=== PATIENT | female | born 1955 | race Caucasian/White ===

== ENCOUNTER 2025-03-24 08:20 | Emergency (ER) | payer MEDICARE, SELFPAY ==
--- NOTE | ~2025-03-24 | XR_ITS ---
EXAMINATION: XR elbow RT min 3V DATE: 03/24/2025 09:29 INDICATION: Right elbow injury post fall TECHNIQUE: Anteroposterior, two oblique and lateral views of the right elbow were obtained. COMPARISON: None. FINDINGS: Alignment is normal. No fracture. 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 No elbow joint effusion. Peripheral IV at the antecubital fossa. Soft t issues are otherwise unremarkable. IMPRESSION: 1. 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 No joint effusion or acute osseous abnormality. Reviewed, dictated and finalized at location A. IMPRESSION: 1. 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 No joint effusion or acute osseou s abnormality.
--- NOTE | ~2025-03-24 | CT_ITS ---
History: Trauma PROCEDURE: CT cervical spine without intravenous contrast. COMPARISON: None TECHNIQUE: Multiple contiguous axial images of the cervical spine were performed without the administration of i ntravenous contrast. DLP: 259 mGy-cm FINDINGS: Moderate kyphosis is demonstrated. Degenerative disease is also noted, with osteophyte formation and disc space narrowing. Significant facet arthropathy is also noted. No acute fractures are present within the cervical spine. The bilateral lung apices are unremarkable. The airway is patent. Acute displaced fractures are identified within the medial, lateral and caudal-most mendoza of the left maxillary sinus. A acute comminuted fracture of the anterior wall of the left maxillary sinus also noted, with posteri or and caudal displacement of the fracture fragments. Acute minimally displaced fracture of the roof of the left maxillary sinus is also noted, without evidence of entrapment of the left inferior rectus muscle, which runs medial to the fracture deformit y. Opacification of the left maxillary and ethmoid sinuses with mixed attenuation tissue, likely a combi nation of hemorrhage and fluid. The right maxillary sinus is clear. Impression: Acute displaced fractures of the medial, lateral and caudal-most mendoza of the maxillary sinus. Acute comminuted fractures of the anterior wall of the maxillary sinus with posterior and caudal disp lacement of the fracture fragments. Acute minimally displaced fracture of the roof of the left maxillary sinus without entrapment. Significant degenerative disease within the cervical spine, without acute fracture identified. Reviewed, dictated and finalized at location A. Impression: Acute displaced fractures of the medial, lateral and caudal-most mendoza of the m axillary sinus. Acute comminuted fractures of the anterior wall of the maxillary sinus with pos terior and caudal displacement of the fracture fragments. Acute minimally displaced fracture of the roof of the left maxillary sinus with out entrapment. Significant degenerative disease within the cervical spine, without acute fract ure identified.
--- NOTE | ~2025-03-24 | CT_ITS ---
History: Trauma PROCEDURE: CT head without contrast. COMPARISON: None TECHNIQUE: Axial imaging of the head performed from the skull base to the vertex without IV contrast. Sagittal a nd coronal reformations obtained. DLP: 605 mGy-cm FINDINGS: The ventricles are enlarged. The dilatation of the ventricles is proportional to the degree of sulcal prominence, not uncommon in the senescent brain. Decreased attenuation is identified within the periventricular white matter, likely secondary to micr ovascular ischemic disease, in a patient of this age. There is no mass, mass effect or midline shift. There is no abnormal extra-axial fluid collection or intracranial hemorrhage. Paranasal sinuses and multiple facial fractures will be further discussed on the examination of the f acial bones. The mastoid air cells are well aerated. No acute displaced fractures within the overlying cranium. Impression: No acute intracranial hemorrhage or suspicious mass effect. Paranasal sinuses and multiple facial fractures will be further discussed on the examination of the f acial bones. Reviewed, dictated and finalized at location A. Impression: No acute intracranial hemorrhage or suspicious mass effect. Paranasal sinuses and multiple facial fractures will be further discussed on th e examination of the facial bones.
--- NOTE | ~2025-03-24 | XR_ITS ---
EXAMINATION: XR wrist LT min 3V DATE: 03/24/2025 09:29 INDICATION: Left wrist injury post fall TECHNIQUE: Posteroanterior, ulnar deviation, oblique, and lateral views of the left wrist were obtain ed. COMPARISON: none FINDINGS: Alignment is normal. No fracture. Mild polyarticular osteoarthritis at the left wrist, midcarpal and first carpal metacarpal joints. Soft tissues are unremarkable. IMPRESSION: 1. 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 No acute osseous abnormality. Reviewed, dictated and finalized at location A. IMPRESSION: 1. 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 No acute osseous abnormali ty.
[2025-03-24 08:18] VITALS: BP 159/58; PULSE 66; RESP 18; TEMP 36.4; O2SAT 99
[2025-03-24 08:25] VITALS: BP 159/58; PULSE 71; RESP 16; O2SAT 96
--- NOTE | 2025-03-24 08:57 | ED_ITS ---
HPI - General Adult General Chief complaint: Fall Stated complaint: fall Time Seen by Provider: 03/24/25 08:25 History of Present Illness HPI narrative: 70-year-old female presents to the emergency department for evaluation for evaluation for a fall. Patient reports she had a fall down the stairs was unsure why she fell. Patient does have left-sided facial swelling, left wrist pain right elbow pain. Patient has history of AFib but is only on aspirin and denies being on any blood thinners. Related Data Allergies Allergy/AdvReac Type Severity Reaction Status Date / Time hydromorphone (From Dilaudid) AdvReac hurts my Verified 03/24/25 08:29 heart quetiapine (From Seroquel) AdvReac syncope Verified 03/24/25 08:29 Review of Systems 2 Review of Systems: All systems reviewed & are unremarkable except as noted in HPI and below Exam 2 Narrative: APPEARANCE: Uncomfortable appearing HEAD: normocephalic, contusion to left face. EYES: Reported double vision and increased eye pain when looking to the left lateral and and when looking up NOSE: Normal no drainage EARS:TMS clear with good light reflex. THROAT: Pharynx clear, no exudate. NECK: Supple. No adenopathy, no masses. RESPIRATORY: Airway patent, respirations nonlabored. Clear to auscultation bilaterally, no rales, rhonchi, wheezing. CARDIOVASCULAR: Regular rate and rhythm without murmurs rubs or gallops. ABDOMINAL: Soft, nontender, nondistended, normal bowel sounds MUSCULOSKELETAL: Moves all extremities. Strength/ROM intact, No edema, No calf tenderness. NEURO: Alert. Cranial nerves II through XII intact. Good gait. Good coordination SKIN: Facial contusion with ecchymosis Course Vital Signs Vital signs: Vital Signs Temperature 97.6 F 03/24/25 08:18 Pulse Rate 66 03/24/25 08:18 Respiratory Rate 18 03/24/25 08:18 Blood Pressure 159/58 H 03/24/25 08:18 Pulse Oximetry 99 03/24/25 08:18 Oxygen Delivery Room Air 03/24/25 08:18 Temperature 97.6 F 03/24/25 08:18 Pulse Rate 62 03/24/25 10:31 Respiratory Rate 16 03/24/25 10:31 Blood Pressure 176/71 H 03/24/25 10:31 Pulse Oximetry 93 03/24/25 10:31 Oxygen Delivery Room Air 03/24/25 08:18 Medical Decision Making MDM Narrative Medical decision making narrative: 70-year-old female presents to the emergency department for evaluation after having a head injury with loss of consciousness. Patient does have facial tenderness to left face with ecchymosis. Patient states she does have some mild blurred vision of the left eye but patient is intact. Patient does report double vision when looking to the left lateral does report increased eye pain when looking left lateral. Patient does have acute displaced fractures of the medial lateral and caudal most wall to the maxillary sinus, acute comminuted fracture of the anterior wall of the maxillary sinus and posterior caudal displacement of the fracture fragment minutes. Acute minimally displaced fracture of the roof of the left maxillary sinus without entrapment. Patient's CT neck was negative for acute fracture and patient's CT brain was negative. Critical Care Procedure Note Authorized and Performed by: Javi Hines Total critical care time: Approximately 36 minutes Due to a high probability of clinically significant, life threatening deterioration, the patient required my highest level of preparedness to intervene emergently and I personally spent this critical care time directly and personally managing the patient. This critical care time included obtaining a history; examining the patient; pulse oximetry; ordering and review of studies; arranging urgent treatment with development of a management plan; evaluation of patient's response to treatment; frequent reassessment; and, discussions with other providers. This critical care time was performed to assess and manage the high probability of imminent, life-threatening deterioration that could result in multi-organ failure. It was exclusive of separately billable procedures and treating other patients and teaching time. Please see MDM section and the rest of the note for further information on patient assessment and treatment. Vital Signs Vital Signs: Vital Signs Temperature 97.6 F 03/24/25 08:18 Pulse Rate 66 03/24/25 08:18 Respiratory Rate 18 03/24/25 08:18 Blood Pressure 159/58 H 03/24/25 08:18 Pulse Oximetry 99 03/24/25 08:18 Oxygen Delivery Room Air 03/24/25 08:18 Temperature 97.6 F 03/24/25 08:18 Pulse Rate 62 03/24/25 10:31 Respiratory Rate 16 03/24/25 10:31 Blood Pressure 176/71 H 03/24/25 10:31 Pulse Oximetry 93 03/24/25 10:31 Oxygen Delivery Room Air 03/24/25 08:18 Lab Data 03/24/25 09:44 03/24/25 09:44 Labs: Lab Results 03/24/25 Range/Units 09:44 WBC 7.3 (4.5-10.0) K/mm3 RBC 3.79 L (4.2-5.4) M/mm3 Hgb 11.2 L (12.0-15.0) g/dL Hct 35.3 L (37.0-47.0) % MCV 93.1 (80-100) fl MCH 29.6 (26-34) pg MCHC 31.7 L (32-36) g/dl RDW 12.1 (11.5-14.5) % Plt Count 175 (150-375) k/mm3 MPV 9.8 (7.4-10.4) fl Immature Gran % (Auto) 0.5 (0-0.5) % Neut % (Auto) 77.7 H (45.5-73.1) % Lymph % (Auto) 16.5 L (18.3-44.2) % Knox % (Auto) 5.2 (2.6-8.5) % Eos % (Auto) 0.0 (0-4.4) % Baso % (Auto) 0.1 L (0.2-1.2) % Lymph # (Auto) 1.21 (0.9-3.2) K/mm3 Knox # (Auto) 0.4 (0.1-0.6) K/mm3 Eos # (Auto) 0.0 (0-0.3) K/mm3 Baso # (Auto) 0.0 (0.0-0.1) K/mm3 Abs Immat Gran (auto) 0.04 H (0.00-0.031) K/mm3 Absolute Neuts (auto) 5.7 (1.3-6.7) K/mm3 Absolute Nucleated RBC 0.000 (0.0-0.012) K/mm3 Nucleated RBC % 0.0 (0.0-0.2) % PT 12.6 (11.1-14.7) Seconds INR 0.9 APTT 28.3 (22.3-36.8) Seconds Sodium 137 (137-145) mmol/L Potassium 4.1 (3.4-5.0) mmol/L Chloride 105 (98-107) mmol/L Carbon Dioxide 28 (22-30) mmol/L Anion Gap 4 (4-12) mmol/L BUN 12 (7-17) mg/dL Creatinine 0.79 (0.7-1.0) mg/dL Estim Creat Clear Calc 48 ml/min Estimated GFR > 60 (59 - ) Glucose 112 H (65-110) mg/dL Calcium 8.8 (8.4-10.2) mg/dL Total Bilirubin 0.4 (0.2-1.3) mg/dL AST 32 (14-36) U/L ALT 19 (6-35) U/L Alkaline Phosphatase 100 (38-126) U/L Total Protein 6.4 (6.3-8.2) g/dL Albumin 3.7 (3.5-5.1) g/dL Ethyl Alcohol < 10 (<10) mg/dL Imaging Data Radiologist's impression: Impressions Head CT 03/24/25 09:23 Impression: No acute intracranial hemorrhage or suspicious mass effect. Paranasal sinuses and multiple facial fractures will be further discussed on the examination of the facial bones. Head/Cervical Spine/Facial Bones CT 03/24/25 09:26 Impression: Acute displaced fractures of the medial, lateral and caudal-most mendoza of the maxillary sinus. Acute comminuted fractures of the anterior wall of the maxillary sinus with posterior and caudal displacement of the fracture fragments. Acute minimally displaced fracture of the roof of the left maxillary sinus without entrapment. Significant degenerative disease within the cervical spine, without acute fracture identified. Elbow X-Ray 03/24/25 09:32 IMPRESSION: 1. 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 No joint effusion or acute osseous abnormality. Wrist X-Ray 03/24/25 09:35 IMPRESSION: 1. 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 No acute osseous abnormality. Critical Care Time Critical Care Time Critical Care Time: Yes Total Critical Care Time: 36 Discharge Plan Discharge Clinical Impression: Facial bone fracture, Entrapment of extraocular muscle Patient Disposition: Acute Care Hospital Condition: Serious Patient Language: [place] Follow-up/Referrals: PHYSICIAN NOT ON STAFF,NONSTAFF [Primary Care Provider] -
--- NOTE | 2025-03-24 09:08 | PC.NURSE ---
Pt taken to CT and Xray at this time
[2025-03-24 09:32] VITALS: BP 179/74; PULSE 64; RESP 17; O2SAT 96
[2025-03-24] MEDS: fentaNYL CITRATE INJ (*CRX) 100 MCG/2 ML VIAL 50 MCG IV PUSH ×2 (09:37→11:30)
[2025-03-24 09:50] LABS: Hematocrit 35.3 % (37.0-47.0); Hemoglobin 11.2 g/dL (12.0-15.0); Immature Granulocyte Percent A 0.5 % (0-0.5); Lymphocytes Absolute Auto 1.21 K/mm3 (0.9-3.2); Mean Corpuscular HGB Conc 31.7 g/dl (32-36); Mean Corpuscular Hemoglobin 29.6 pg (26-34); Mean Corpuscular Volume 93.1 fl (80-100); Nucleated Red Blood Cells Absolute Auto 0.000 K/mm3 (0.0-0.012); Nucleated Red Blood Cells Perc 0.0 % (0.0-0.2); Platelet Count Result 175 k/mm3 (150-375); Red Blood Count 3.79 M/mm3 (4.2-5.4); White Blood Count 7.3 K/mm3 (4.5-10.0)
[2025-03-24 10:01] VITALS: BP 174/72; PULSE 61; RESP 17; O2SAT 92
[2025-03-24 10:17] LABS: Alanine Aminotransferase 19 U/L (6-35); Albumin Level 3.7 g/dL (3.5-5.1); Alkaline Phosphatase 100 U/L (38-126); Anion Gap 4 mmol/L (4-12); Aspartate Amino Transferase 32 U/L (14-36); Bilirubin,Total 0.4 mg/dL (0.2-1.3); Blood Urea Nitrogen 12 mg/dL (7-17); Calcium 8.8 mg/dL (8.4-10.2); Carbon Dioxide 28 mmol/L (22-30); Chloride 105 mmol/L (98-107); Estimated CRCL calculation 48 ml/min; Estimated Glomerular Filt Rate > 60; Glucose 112 mg/dL (65-110); Potassium 4.1 mmol/L (3.4-5.0); Sodium 137 mmol/L (137-145); Total Protein 6.4 g/dL (6.3-8.2)
[2025-03-24 10:24] LABS: INR 0.9; Prothrombin Time 12.6 Seconds (11.1-14.7)
[2025-03-24 10:25] LABS: Partial Thromboplastin Time 28.3 Seconds (22.3-36.8)
[2025-03-24 10:31] VITALS: BP 176/71; PULSE 62; RESP 16; O2SAT 93
[2025-03-24] MEDS: cefTRIAXone 1 GM in SODIUM CHLORIDE 0.9% IV 50 ML 100 ML IVPB (10:53)
== END 2025-03-24 11:48 | disposition short-term general hospital (02) ==
PROVIDERS: Emergency Provider Emergency Medicine
DX: S02.40DA Maxillary fracture, left side, initial encounter for closed fracture (principal); H50.682 Extraocular muscle entrapment, unspecified, left eye; W10.9XXA Fall (on) (from) unspecified stairs and steps, initial encounter; I48.91 Unspecified atrial fibrillation; Z79.82 Long term (current) use of aspirin
CPT/HCPCS: 36415; 70450; 70486; 72125; 73080; 73110; 80053; 82077; 85025; 85610; 85730; 96365; 96375; 96376; 99285; J0696; J3010